=== PATIENT | male | born 1935 | race African-American/Black ===

== ENCOUNTER → 2016-07-23 | Outpatient (CLI) | payer MEDICARE, MEDICAID ==
[~2016-07-23] MED LIST: BICA50TA4 PO; FOLI-49 PO; VALS1TAB60 PO; ZOLP5TAB7 PO; [UNRECOGNIZED DRUG - OTHER] INJECTION
--- NOTE | 2016-07-24 14:33 | RADRPT ---
PROCEDURE: Metastatic bone survey. CLINICAL INDICATION: History of prostate cancer with bone metastases. Monoclonal gammopathy. TECHNIQUE: A total of 36 images were obtained. Frontal and lateral skull, frontal and lateral spi ne, frontal pelvis, frontal chest, frontal and lateral long bones, frontal and oblique ribs. COMPARISON: 08/02/2015. FINDINGS: There is no fracture or dislocation. There is extensive sclerotic lesions throughout the spine, rib s, pelvis, femurs, humeri, scapulae, radii, tibii, and fibulae. Smaller regions of mixed sclerosis a nd lysis are also present. There are moderate degenerative changes of the spine. There is calcific ation in the aorta consistent with atherosclerosis. IMPRESSION: 1. Extensive mixed sclerotic and lytic lesions throughout the entire visualized skeleton with some sparing of the calvarium. 2. Degenerative changes of the spine. 3. No fracture or dislocation. RPTAT: QQ .Chet Sánchez MD, MD Date Time Electronically viewed and signed by .Chet Sánchez MD, MD on 07/24/2016 14:33 .R/
== END | disposition home or self-care (01) ==
LOC: RAD 13:01
PROVIDERS: ATTEND Internal Medicine Hematology & Oncology
DX: C61 Malignant neoplasm of prostate (principal); C79.51 Secondary malignant neoplasm of bone; D47.2 Monoclonal gammopathy
CPT/HCPCS: 77075